=== PATIENT | female | born 1970 | race Caucasian/White ===

== ENCOUNTER → 2018-07-04 | Outpatient (CLI) | payer OTHER ==
--- NOTE | 2018-07-06 11:10 | Diagnostic Imaging Report ---
EXAMINATION: Digital mammogram bilateral screening with 3D tomosynthesis. INDICATION: Screening. This study was compared to the prior exam of 12/10/2014. At this time there are no current complaints. The current study was also evaluated with a Computer Aided Detection (CAD) system. FINDINGS: The fibroglandular tissue in both breasts is heterogeneously dense. This does limit the sensitivity of this exam. Overall, there does not appear to have been any significant change when compared to the prior study. No primary or secondary sign of malignancy is noted. IMPRESSION: 1. There is no radiographic evidence for malignancy. 2. The patient should have her annual bilateral screening mammogram on schedule in June of 2019. ACR BI-RADS Category 1: Negative. Result letter will be mailed to the patient. Note: At least 10% of breast cancer is not imaged by mammography. Dictated by: Dictated on workstation # [id number]
== END ==
LOC: RAD 15:23
PROVIDERS: ATTEND Obstetrics & Gynecology
DX: Z12.31 Encounter for screening mammogram for malignant neoplasm of breast (principal)
CPT/HCPCS: 77067

== ENCOUNTER → 2018-07-29 | Outpatient (CLI) | payer OTHER ==
--- NOTE | 2018-07-29 14:23 | Diagnostic Imaging Report ---
PROCEDURE: US Non-ob pelvis comp/trans. TECHNIQUE: Multiple realtime grayscale images were obtained of the pelvis in various projections endovaginally. Transabdominal imaging was also performed. INDICATION: Oligomenorrhea FINDINGS: The uterus measures 10.2 x 6.1 x 5.7 cm. Endometrium measures 11 mm in thickness. The myometrium and endometrium were unremarkable. There are several nabothian cysts in the cervix, the largest of which measures 3.4 cm. The ovaries were obscured by bowel gas. IMPRESSION: Multiple large nabothian cysts in the cervix. Myometrium and endometrium are unremarkable. Dictated by: Dictated on workstation # [id number]
== END ==
LOC: RAD 13:01
PROVIDERS: ATTEND Obstetrics & Gynecology
DX: N91.5 Oligomenorrhea, unspecified (principal); N88.8 Other specified noninflammatory disorders of cervix uteri; Z80.49 Family history of malignant neoplasm of other genital organs
CPT/HCPCS: 76830; 76856

== ENCOUNTER 2019-05-03 16:07 | Observation (INO) | payer OTHER ==
[~2019-05-03] VITALS: Ht 157.5 cm; Wt 108.3 kg
--- NOTE | 2019-05-03 16:57 | ED General ---
General Chief Complaint: Fever-Adult/Adol Stated Complaint: ABD PAIN,FEVER History of Present Illness Date Seen by Provider: May 03, 2019 Time Seen by Provider: 16:45 (LOS GARCIA DO) Initial Comments ER with abdominal pain and fever ongoing for 2-3 days. Abdominal pain is right lower quadrant. She states that she's been having some irregular menses and is scheduled to have a hysterectomy with Dr. Gonzalez in the next few weeks. Her mother of ovarian cancer. Timing/Duration: 2-3 Days Severity: Moderate (MARY WINSLOW APRN) Allergies and Home Medications Allergies Coded Allergies: No Known Drug Allergies (Unverified , 05/03/19) Patient Home Medication List Home Medication List Reviewed: Yes (MARY WINSLOW APRN) Review of Systems Review of Systems Constitutional: see HPI, fever EENTM: see HPI Respiratory: no symptoms reported Cardiovascular: no symptoms reported Gastrointestinal: abdominal pain Genitourinary: no symptoms reported Musculoskeletal: no symptoms reported Skin: no symptoms reported Psychiatric/Neurological: No Symptoms Reported Hematologic/Lymphatic: No Symptoms Reported (MARY WINSLOW APRN) Past Indyfnz-Exfbse-Wbwakd Hx Patient Social History Recent Foreign Travel: No Contact w/Someone Who Travel: No (LOS GARCIA DO) Physical Exam Vital Signs Vital Signs - First Documented 05/03/19 16:28 Temp 39.9 Pulse 110 Resp 22 B/P (MAP) 148/74 (98) Pulse Ox 98 O2 Delivery Room Air (MARY WINSLOW APRN) Vital Signs Capillary Refill : (LOS GARCIA DO) Height, Weight, BMI Height: '" Weight: lbs. oz. kg; BMI Method: (LOS GARCIA DO) General Appearance: No Apparent Distress, WD/WN (she has a history of a stroke but last) Eyes: Bilateral Eye Normal Inspection, Bilateral Eye PERRL, Bilateral Eye EOMI HEENT: PERRL/EOMI, TMs Normal Respiratory: No Accessory Muscle Use, No Respiratory Distress Cardiovascular: Regular Rate, Rhythm, Normal Peripheral Pulses Gastrointestinal: Soft; No Distended, No Guarding; Tenderness (right lower quadrant) Genital/Rectal: Other (over exam with Hermelinda, PCT at the bedside. There is blood from the cervical os, there is no cervical motion tenderness) Extremity: Normal Capillary Refill, Normal Inspection Neurologic/Psychiatric: Alert, Oriented x3 Skin: Normal Color (MARY WINSLOW APRN) Progress/Results/Core Measures Suspected Sepsis SIRS Temperature: Pulse: Respiratory Rate: Blood Pressure / Mean: (LOS GARCIA DO) Results/Orders Lab Results Laboratory Tests Test 05/03/19 16:50 05/03/19 18:53 05/03/19 19:00 Range/Units White Blood Count 17.7 H 4.3-11.0 10^3/uL Red Blood Count 4.92 4.35-5.85 10^6/uL Hemoglobin 13.7 11.5-16.0 G/DL Hematocrit 41 35-52 % Mean Corpuscular Volume 83 80-99 FL Mean Corpuscular Hemoglobin 28 25-34 PG Mean Corpuscular Hemoglobin Concent 34 32-36 G/DL Red Cell Distribution Width 13.0 10.0-14.5 % Platelet Count 320 130-400 10^3/uL Mean Platelet Volume 10.0 7.4-10.4 FL Neutrophils (%) (Auto) 80 H 42-75 % Lymphocytes (%) (Auto) 11 L 12-44 % Monocytes (%) (Auto) 9 0-12 % Eosinophils (%) (Auto) 1 0-10 % Basophils (%) (Auto) 0 0-10 % Neutrophils # (Auto) 14.1 H 1.8-7.8 X 10^3 Lymphocytes # (Auto) 1.9 1.0-4.0 X 10^3 Monocytes # (Auto) 1.7 H 0.0-1.0 X 10^3 Eosinophils # (Auto) 0.1 0.0-0.3 10^3/uL Basophils # (Auto) 0.0 0.0-0.1 10^3/uL Neutrophils % (Manual) 74 % Lymphocytes % (Manual) 15 % Monocytes % (Manual) 9 % Eosinophils % (Manual) 2 % Toxic Granulation 2+ Blood Morphology Comment NORMAL Sodium Level 135 135-145 MMOL/L Potassium Level 4.1 3.6-5.0 MMOL/L Chloride Level 101 98-107 MMOL/L Carbon Dioxide Level 23 21-32 MMOL/L Anion Gap 11 5-14 MMOL/L Blood Urea Nitrogen 10 7-18 MG/DL Creatinine 0.67 0.60-1.30 MG/DL Estimat Glomerular Filtration Rate > 60 BUN/Creatinine Ratio 15 Glucose Level 98 70-105 MG/DL Calcium Level 9.2 8.5-10.1 MG/DL Corrected Calcium 9.2 8.5-10.1 MG/DL Total Bilirubin 0.3 0.1-1.0 MG/DL Aspartate Amino Transf (AST/SGOT) 10 5-34 U/L Alanine Aminotransferase (ALT/SGPT) 16 0-55 U/L Alkaline Phosphatase 81 40-136 U/L Total Protein 7.8 6.4-8.2 GM/DL Albumin 4.0 3.2-4.5 GM/DL Serum Test, Qualitative NEGATIVE NEGATIVE Urine Color YELLOW Urine Clarity CLEAR Urine pH 7.0 5-9 Urine Specific [place] <=1.005 1.016-1.022 Urine Protein NEGATIVE NEGATIVE Urine Glucose (UA) NEGATIVE NEGATIVE Urine Ketones NEGATIVE NEGATIVE Urine Nitrite NEGATIVE NEGATIVE Urine Bilirubin NEGATIVE NEGATIVE Urine Urobilinogen 0.2 < = 1.0 MG/DL Urine Leukocyte Esterase NEGATIVE NEGATIVE Urine RBC (Auto) NEGATIVE NEGATIVE Urine RBC NONE /HPF Urine WBC NONE /HPF Urine Squamous Epithelial Cells RARE /HPF Urine Crystals NONE /LPF Urine Bacteria NEGATIVE /HPF Urine Casts NONE /LPF Urine Mucus NEGATIVE /LPF Urine Culture Indicated NO (MARY WINSLOW APRN) Micro Results Microbiology 05/03/19 Influenza Types A,B Antigen (KOFFI) - Final, Complete (MARY WINSLOW APRN) My Orders Orders - MARY WINSLOW APRN Cbc With Automated Diff (05/03/19 17:01) Comprehensive Metabolic Panel (05/03/19 17:01) Hcg,Qualitative Serum (05/03/19 17:01) Ed Iv/Invasive Line Start (05/03/19 17:01) Ct Abd/Pelv W (Appendicitis) (05/03/19 17:01) Influenza A And B Antigens (05/03/19 17:01) Ua Culture If Indicated (05/03/19 17:01) Acetaminophen Tablet (Tylenol Tablet) (05/03/19 17:15) Ibuprofen Tablet (Motrin Tablet) (05/03/19 17:15) Iohexol Injection (Omnipaque 350 Mg/Ml 1 (05/03/19 17:15) Received Contrast (Hold Metformin- Contr (05/03/19 17:15) Ns (Ivpb) (Sodium Chloride 0.9% Ivpb Bag (2/5/20 17:15) Manual Differential (05/03/19 16:50) Wet Prep (05/03/19 19:03) Neisseria Gonorrhea Swab (05/03/19 19:03) Genital Culture (05/03/19 19:03) Chlamydia Trachomatis Swab (05/03/19 19:03) Ns Iv 1000 Ml (Sodium Chloride 0.9%) (05/03/19 19:30) Fentanyl Injection (Sublimaze Injection (05/03/19 19:30) Piperacillin Sodium/Tazobactam (Zosyn Vi (05/03/19 20:15) (MARY WINSLOW APRN) Medications Given in ED Current Medications Medications Dose Ordered Sig/Garrett Route Start Time Stop Time Status Last Admin Dose Admin Acetaminophen 1,000 mg ONCE ONCE PO 05/03/19 17:15 05/03/19 17:16 DC 05/03/19 17:36 1,000 MG Fentanyl Citrate 50 mcg ONCE ONCE IVP 05/03/19 19:30 05/03/19 19:31 DC 05/03/19 19:55 50 MCG Ibuprofen 800 mg ONCE ONCE PO 05/03/19 17:15 05/03/19 17:16 DC 05/03/19 17:35 800 MG Iohexol 100 ml ONCE ONCE IV 05/03/19 17:15 05/03/19 17:16 DC 05/03/19 17:51 100 ML Sodium Chloride 100 ml ONCE ONCE IV 05/03/19 17:15 05/03/19 17:16 DC 05/03/19 17:51 80 ML (MARY WINSLOW APRN) Vital Signs/I&O 05/03/19 05/03/19 05/03/19 16:28 17:35 17:36 Temp 39.9 39.9 39.9 Pulse 110 Resp 22 B/P (MAP) 148/74 (98) Pulse Ox 98 O2 Delivery Room Air (MARY WINSLOW APRN) Vital Signs/I&O Capillary Refill : (LOS GARCIA DO) Departure Communication (Admissions) Time/Spoke to Admitting Phy: 20:13 1902-Spoke to Dr. Finney who is on-call for surgery, looked at the CT himself doesn't visualize an appendix, feels this is ovarian in nature. However, if [facility] wanted to take this to the operating room he would be happy to accompany them tonight. I then spoke with Dr. Ch bacon slicer for Dr. Gonzalez, based on what I described the CT scan as, he doesn't feel this is ovarian, would recommend wet prep to evaluate for white blood cells. If there are white blood cells then TOA/PID is more likely and she needs antibiotics. If no white blood cells and no cervical motion tenderness and it would be unlikely to be gynecologic in nature. 2012-spoke with Dr. Finney again, there is no cervical motion tenderness and rare white cells on wet prep. We'll admit for right adnexal mass, tentatively plan for diagnostic laparotomy tomorrow. (MARY WINSLOW APRN) Impression Primary Impression: Right lower quadrant pain Additional Impression: right adnexal mass Disposition: ADMITTED INPATIENT Condition: Stable Admissions Decision to Admit Reason: Admit from ER (General) Decision to Admit/Date: May 03, 2019 Time/Decision to Admit Time: 20:13 (MARY WINSLOW APRN) Departure-Patient Inst. Referrals: CLIVE GONZALEZ DO (PCP/Family) Primary Care Physician LOS GARCIA DO May 03, 2019 16:57 MARY WINSLOW APRN May 03, 2019 18:52
--- NOTE | 2019-05-03 17:08 | NUR ---
Leander jones in [facility] - 05/03/19 at 1710 by [id number] Turned pt's O2 off at this time and pt's sat dropped to 88% again. O2 reapplied.
[2019-05-03] MEDS ORDERED: HOLD METFORMIN - RECEIVED CONTRAST 20 ML VIAL IV SCH (17:15)
[2019-05-03] MEDS ORDERED: ACETAMINOPHEN 500 MG TAB (TYLENOL) PO ONE (17:15)
[2019-05-03] MEDS ORDERED: NS 100 ML (IVPB) BAG IV ONE (17:15)
[2019-05-03] MEDS ORDERED: IBUPROFEN 800 MG (MOTRIN) TAB PO ONE (17:15)
[2019-05-03] MEDS ORDERED: IOHEXOL 350 MG/ML 100 ML (OMNIPAQUE 350) VIAL IV ONE (17:15)
[2019-05-03 17:23] LABS: BASOPHILS % (AUTO) 0 % (0-10); EOSINOPHILS # (AUTO) 0.1 10^3/uL (0.0-0.3); EOSINOPHILS % (AUTO) 1 % (0-10); HEMATOCRIT 41 % (35-52); HEMOGLOBIN 13.7 G/DL (11.5-16.0); LYMPHOCYTES # (AUTO) 1.9 X 10^3 (1.0-4.0); LYMPHOCYTES % (AUTO) 11 % (12-44); MEAN CORPUSCULAR HEMOGLOBIN 28 PG (25-34); MEAN CORPUSCULAR HGB CONC 34 G/DL (32-36); MEAN CORPUSCULAR VOLUME 83 FL (80-99); MONOCYTES # (AUTO) 1.7 X 10^3 (0.0-1.0); MONOCYTES % (AUTO) 9 % (0-12); NEUTROPHILS # (AUTO) 14.1 X 10^3 (1.8-7.8); NEUTROPHILS % (AUTO) 80 % (42-75); PLATELET COUNT 320 10^3/uL (130-400); WHITE BLOOD COUNT 17.7 10^3/uL (4.3-11.0)
[2019-05-03 17:37] LABS: ALANINE AMINOTRANSFERASE 16 U/L (0-55); ALKALINE PHOSPHATASE 81 U/L (40-136); BILIRUBIN,TOTAL 0.3 MG/DL (0.1-1.0); BUN/CREATININE RATIO 15; CALCIUM 9.2 MG/DL (8.5-10.1); CARBON DIOXIDE 23 MMOL/L (21-32); CHLORIDE 101 MMOL/L (98-107); CREATININE SERUM 0.67 MG/DL (0.60-1.30); GFR ESTIMATED > 60; GLUCOSE 98 MG/DL (70-105); POTASSIUM 4.1 MMOL/L (3.6-5.0); SODIUM 135 MMOL/L (135-145); TOTAL PROTEIN 7.8 GM/DL (6.4-8.2)
[2019-05-03 17:45] LABS: LYMPHOCYTES % (MANUAL) 15 %; MONOCYTES % (MANUAL) 9 %; NEUTROPHILS % (MANUAL) 74 %
[2019-05-03 17:46] LABS: EOSINOPHILS % (MANUAL) 2 %; RBC MORPH NORMAL; TOXIC GRANULATION/VACUOLAZATIO 2+
--- NOTE | 2019-05-03 18:15 | Diagnostic Imaging Report ---
PROCEDURE: CT abdomen and pelvis with contrast, rule out appendicitis. TECHNIQUE: Multiple contiguous axial images were obtained through the abdomen and pelvis after the administration of intravenous contrast. All CT scans use one or more of the following dose optimizing techniques: automated exposure control, MA and/or KvP adjustment based on a patient size and exam type, or iterative reconstruction. INDICATION: Abdominal pain. COMPARISON: 07/29/2018 pelvic ultrasound. FINDINGS: The lung bases are clear. Liver, gallbladder, pancreas, spleen, adrenals, kidneys, collecting systems and bladder are negative. The appendix is not well seen and may be surgically absent. There is a complex cystic mass in the right adnexa, adjacent the cecum, which is most likely ovarian in origin. This measures approximately 6.0 x 3.6 x 4.7 cm. There is also small amount of stranding about this complex cystic mass. There is also complex cystic mass in the cervix measuring 5.4 x 3.7 x 3.2 cm. No free fluid dependently in the pelvis. No free intraperitoneal air. No lymphadenopathy. No evidence of bowel obstruction or inflammation. Mild colonic diverticulosis. IMPRESSION: 1. Indeterminate complex cystic mass in the right adnexa is most likely ovarian in origin. This measures up to 6.0 cm and demonstrates adjacent inflammatory change/stranding. No free fluid in the pelvis. The appendix is not identified and an abscess due to complicated appendicitis could also be considered. 2. Complex cystic mass in the cervix measuring up to 5.4 cm. Multiple large nabothian cysts were seen on the prior pelvic ultrasound. It is unclear if these have changed since that time. An endometrial malignancy cannot be excluded. Dictated by: Dictated on workstation # [id number]
[2019-05-03 19:05] LABS: BILIRUBIN,URINE NEGATIVE (NEGATIVE); CLARITY,URINE CLEAR; COLOR,URINE YELLOW; GLUCOSE, URINE (UA) NEGATIVE (NEGATIVE); KETONES,URINE NEGATIVE (NEGATIVE); LEUKOCYTE ESTERASE ,URINE NEGATIVE (NEGATIVE); NITRITE,URINE NEGATIVE (NEGATIVE); PROTEIN,URINE NEGATIVE (NEGATIVE)
[2019-05-03 19:13] LABS: BACTERIA,URINE NEGATIVE /HPF; SQUAMOUS EPITHELIAL CELL,UR RARE /HPF
[2019-05-03] MEDS ORDERED: NS IV 1000 ML 1,000 ML IV SCH (19:30)
[2019-05-03] MEDS ORDERED: fentaNYL INJECTION 100 MCG/2 ML AMP IVP ONE (19:30)
[2019-05-03] MEDS ORDERED: PIPERACILLIN SODIUM/TAZOBACTAM 4.5 GM in NS (IVPB) 100 ML IV ONE (20:15)
--- NOTE | 2019-05-03 21:13 | NUR ---
attempted to call for report-no answer
--- NOTE | 2019-05-03 21:13 | NUR ---
moose assisted Marc with mainspring winder and oiler exam
--- NOTE | 2019-05-03 22:20 | NUR ---
VASQUEZ DURBIN admitted to room 426-1, with an admitting diagnosis of RIGHT ADNEXAL MASS , on 05/03/19 from [place] via [facility], accompanied by STAFF AND SISTER.VASQUEZ DURBIN introduced to surroundings, call light, bed controls, phone, TV, temperature control, lights, meal times, smoking policy, visitor policy, side rail policy, bathrooms and showers. Patient Rights given to patient in the handbook. VASQUEZ DURBIN verbalizes understanding that [facility] is not responsible for the loss or damage to any personal effects or valuables that are kept in the patients posession during their hospitalization. Patient and/or family were informed about the Rapid Response Team and its purpose.
[2019-05-03 22:37] VITALS: BP 125/74
[2019-05-03] MEDS ORDERED: ACETAMINOPHEN 325 MG TABLET PO PRN (22:45)
[2019-05-03] MEDS ORDERED: fentaNYL INJECTION 100 MCG/2 ML AMP IV PRN (22:45)
[2019-05-03] MEDS ORDERED: CATHETER FLUSH 10 ML SYR IV PRN (22:45)
[2019-05-03] MEDS: NS IV 1000 ML 1,000 ML IV SCH (23:13)
[2019-05-04] VITALS (13 sets, daily range): BP systolic 17–142; BP diastolic 54–74
[2019-05-04] MEDS ORDERED: PIPERACILLIN/TAZO 4.5 GM VIAL (ZOSYN) IV ONE (02:12)
[2019-05-04] MEDS ORDERED: NS (IVPB) 100 ML ONE (02:13)
[2019-05-04] MEDS: PIPERACILLIN/TAZO 4.5 GM/NS 100 ML IV SCH ×6 (02:31→17:16)
[2019-05-04] MEDS: IBUPROFEN 600 MG (MOTRIN) TAB PO PRN ×2 (04:20→20:01)
[2019-05-04] MEDS: NS IV 1000 ML 1,000 ML IV SCH ×3 (05:51→18:45)
[2019-05-04 06:18] LABS: BASOPHILS % (AUTO) 0 % (0-10); EOSINOPHILS % (AUTO) 0 % (0-10); HEMATOCRIT 37 % (35-52); HEMOGLOBIN 11.9 G/DL (11.5-16.0); LYMPHOCYTES # (AUTO) 1.3 X 10^3 (1.0-4.0); LYMPHOCYTES % (AUTO) 7 % (12-44); MEAN CORPUSCULAR HEMOGLOBIN 27 PG (25-34); MEAN CORPUSCULAR HGB CONC 32 G/DL (32-36); MEAN CORPUSCULAR VOLUME 83 FL (80-99); MONOCYTES # (AUTO) 1.6 X 10^3 (0.0-1.0); MONOCYTES % (AUTO) 9 % (0-12); NEUTROPHILS # (AUTO) 15.1 X 10^3 (1.8-7.8); NEUTROPHILS % (AUTO) 84 % (42-75); PLATELET COUNT 278 10^3/uL (130-400); RED CELL DISTRIBUTION WIDTH 12.9 % (10.0-14.5)
[2019-05-04 06:33] LABS: ALANINE AMINOTRANSFERASE 15 U/L (0-55); ALBUMIN 3.4 GM/DL (3.2-4.5); ALKALINE PHOSPHATASE 71 U/L (40-136); BILIRUBIN,TOTAL 0.4 MG/DL (0.1-1.0); BUN/CREATININE RATIO 11; CALCIUM 8.4 MG/DL (8.5-10.1); CARBON DIOXIDE 23 MMOL/L (21-32); CHLORIDE 108 MMOL/L (98-107); CREATININE SERUM 0.61 MG/DL (0.60-1.30); GFR ESTIMATED > 60; GLUCOSE 116 MG/DL (70-105); POTASSIUM 3.6 MMOL/L (3.6-5.0); SODIUM 138 MMOL/L (135-145); TOTAL PROTEIN 6.7 GM/DL (6.4-8.2)
[2019-05-04] MEDS ORDERED: LACTATED RINGERS 1,000 ML IV PRN (08:40)
[2019-05-04] MEDS ORDERED: BUP/EPI 0.5% 1:200,000 (SENSORCAINE) 30 ML VIAL ONE (08:42)
[2019-05-04] MEDS ORDERED: LIDOCAINE PF 2% 5 ML (XYLOCAINE) VIAL ONE (09:44)
[2019-05-04] MEDS ORDERED: ROCURONIUM 10 MG/ML 5 ML SYRINGE IV ONE (09:44)
[2019-05-04] MEDS ORDERED: proPOfol 200 MG/20 ML (DIPRIVAN) VIAL IV ONE (09:44)
[2019-05-04] MEDS ORDERED: MIDAZOLAM 2 MG/2 ML (VERSED) VIAL ONE (09:45)
[2019-05-04] MEDS ORDERED: fentaNYL INJECTION 100 MCG/2 ML AMP ONE ×2 (09:45→12:20)
[2019-05-04] MEDS ORDERED: SEVOFLURANE (ULTANE) 15 ML INHAL SOLN ONE ×7 (09:46→12:39)
[2019-05-04] MEDS ORDERED: DEXAMETHASONE 10 MG/ML (DECADRON) 1 ML VIAL ONE (09:46)
[2019-05-04] MEDS ORDERED: ONDANSETRON 4 MG/2 ML (SDV) Z0FRAN ONE ×2 (09:46→12:39)
[2019-05-04] MEDS ORDERED: MULT-298 PO (09:56)
[2019-05-04] MEDS ORDERED: IBUP-2473 PO (09:56)
--- NOTE | 2019-05-04 09:57 | NUR ---
Pt is listed as [employer]yb[employer]ian but prefers "Taoism" Mandaen. Junior Software Engineer offered prayer and blessing.
--- NOTE | 2019-05-04 10:24 | NUR ---
SPOKE WITH THE PT TO THE COMPLETE THE MED REC. PT INDICATED SHE DOES NOT TAKE ANY PRESCRIPTION MEDICATION. I DID UPDATE HER PREFERRED PHARMACY. OTC MEDS: IBUPROFEN MTV W/ IRON
--- NOTE | 2019-05-04 10:33 | History & Physical-Surgical ---
[facility] 05/04/19 1032: History of Present Illness History of Present Illness Reason for visit/HPI Allyssa is a 49 year old female that presented to the ED with pain and fever of 2-3 days duration. Pain is localized in the RLQ, pain radiates to back and into groin area. Patient feels pain with moderate palpation and has voluntary guarding. Remainder of abdomen is soft and tender with no pain. Neg Rovsing sign. CT of abdomen showed cystic masses adjacent to cecum and cervix, appendix not visualized. Patient was examined by Dr. Holman for evaluation of pain being of gynecologic origin. She is admitted for R adnexal mass. Surgical history includes 3 prior C sections, with the last one being over 25 years ago. She was scheduled to have a hysterectomy on May 16. At this time patient denies nausea, vomiting, or pain in other areas of her body. Patient had a bowel movement yesterday and is urinating without difficulty. Denies SOB, chest pain, or palpitations. Patient denies smoking, drinking or recreational drugs. Negative test Date of Admission May 03, 2019 at 20:07 Date Seen by a Provider: May 04, 2019 Time Seen by a Provider: 08:30 I consulted on this patient on 05/04/19 10:27 Attending Physician Rubio Rodriguez DO Admitting Physician Susy Penny DO Consult Allergies and Home Medications Allergies Coded Allergies: No Known Drug Allergies (Unverified , 05/03/19) Home Medications Ibuprofen 200 Mg Tablet, 600-800 MG PO Q8H PRN for PAIN-MILD (1-4), (Reported) Multivitamin/Iron/Folic Acid 1 Each Tablet, 1 EACH PO DAILY, (Reported) Past Qapqinf-Wrexzd-Bjtyap Hx Patient Social History Alcohol Use: Denies Use Recreational Drug Use: No Smoking Status: Never a Smoker 2nd Hand Smoke Exposure: No Recent Foreign Travel: No Contact w/Someone Who Travel: No Recent Infectious Disease Expo: No Immunizations Up To Date Date of Influenza Vaccine: Feb 01, 2019 Surgeries History of Surgeries: Yes Surgeries: Section Respiratory History of Respiratory Disorde: No Cardiovascular History of Cardiac Disorders: No Neurological History of Neurological Disord: No Reproductive System Female Reproductive Disorders: Menstrual Problems CONFERENCE ASSISTANT History: Tubal Ligation Genitourinary History of Genitourinary Disor: No Gastrointestinal History of Gastrointestinal Di: No Musculoskeletal History of Musculoskeletal Dis: No Endocrine History of Endocrine Disorders: No HEENT History of HEENT Disorders: No Cancer History of Cancer: No Psychosocial History of Psychiatric Problem: No Integumentary History of Skin or Integumenta: No Blood Transfusions History of Blood Disorders: No Family Medical History Significant Family History: Cancer (mom - ovarian cancer ), Stroke (father) Review of Systems Constitutional: chills; No diaphoresis; fever; No weakness EENTM: No hearing loss, No double vision, No vision loss Respiratory: No cough, No dyspnea on exertion, No orthopnea, No short of breath Cardiovascular: No chest pain; edema (mild b/l ); No palpitations Gastrointestinal: RLQ, abdominal pain (RLQ); No constipation, No diarrhea, No dysphagia, No nausea, No vomiting Genitourinary: No dysuria, No pain Musculoskeletal: No muscle pain, No muscle cramps, No muscle weakness Skin: no symptoms reported Psychiatric/Neurological: No Symptoms Reported Physical Exam Vital Signs Vital Signs - First Documented 05/03/19 16:28 Temp 39.9 Pulse 110 Resp 22 B/P (MAP) 148/74 (98) Pulse Ox 98 O2 Delivery Room Air Capillary Refill : Less Than 3 Seconds Height, Weight, BMI Height: '" Weight: lbs. oz. kg; 43.65 BMI Method: General Appearance: No Apparent Distress, WD/WN HEENT: No Scleral Icterus (L), No Scleral Icterus (R) Neck: Non Tender, Supple Respiratory: Chest Non Tender, Lungs Clear, Normal Breath Sounds, No Accessory Muscle Use, No Respiratory Distress Cardiovascular: Regular Rate, Rhythm, No Murmur, Normal Peripheral Pulses (2/4 b/l radial) Gastrointestinal: Normal Bowel Sounds, Guarding (voluntary RLQ); No Rebound; T enderness (RLQ) Rectal: Deferred Back: Normal Inspection, No CVA Tenderness Extremity: No Calf Tenderness, Swelling (b/l mild ) Neurologic/Psychiatric: Alert, Oriented x3, Normal Mood/Affect Skin: Normal Color, Warm/Dry Lymphatic: No Adenopathy (neck, auricular, supraclavicular, inguinal. popliteal - negative for all) Data Review Labs Laboratory Tests 05/03/19 16:50: White Blood Count 17.7H, Red Blood Count 4.92, Hemoglobin 13.7, Hematocrit 41, Mean Corpuscular Volume 83, Mean Corpuscular Hemoglobin 28, Mean Corpuscular Hemoglobin Concent 34, Red Cell Distribution Width 13.0, Platelet Count 320, Mean Platelet Volume 10.0, Neutrophils (%) (Auto) 80H, Lymphocytes (%) (Auto) 11L, Monocytes (%) (Auto) 9, Eosinophils (%) (Auto) 1, Basophils (%) (Auto) 0, Neutrophils # (Auto) 14.1H, Lymphocytes # (Auto) 1.9, Monocytes # (Auto) 1.7H, Eosinophils # (Auto) 0.1, Basophils # (Auto) 0.0, Neutrophils % (Manual) 74, Lymphocytes % (Manual) 15, Monocytes % (Manual) 9, Eosinophils % (Manual) 2, Toxic Granulation 2+, Blood Morphology Comment NORMAL, Sodium Level 135, Potassium Level 4.1, Chloride Level 101, Carbon Dioxide Level 23, Anion Gap 11, Blood Urea Nitrogen 10, Creatinine 0.67, Estimat Glomerular Filtration Rate > 60, BUN/Creatinine Ratio 15, Glucose Level 98, Calcium Level 9.2, Corrected Calcium 9.2, Total Bilirubin 0.3, Aspartate Amino Transf (AST/SGOT) 10, Alanine Aminotransferase (ALT/SGPT) 16, Alkaline Phosphatase 81, Total Protein 7.8, Albumin 4.0, Serum Test, Qualitative NEGATIVE 05/03/19 18:53: 05/03/19 19:00: Urine Color YELLOW, Urine Clarity CLEAR, Urine pH 7.0, Urine Specific [place] <=1.005, Urine Protein NEGATIVE, Urine Glucose (UA) NEGATIVE, Urine Ketones NEGATIVE, Urine Nitrite NEGATIVE, Urine Bilirubin NEGATIVE, Urine Urobilinogen 0.2, Urine Leukocyte Esterase NEGATIVE, Urine RBC (Auto) NEGATIVE, Urine RBC NONE, Urine WBC NONE, Urine Squamous Epithelial Cells RARE, Urine Crystals NONE, Urine Bacteria NEGATIVE, Urine Casts NONE, Urine Mucus NEGATIVE, Urine Culture Indicated NO 05/04/19 06:02: White Blood Count 18.0H, Red Blood Count 4.49, Hemoglobin 11.9, Hematocrit 37, Mean Corpuscular Volume 83, Mean Corpuscular Hemoglobin 27, Mean Corpuscular Hemoglobin Concent 32, Red Cell Distribution Width 12.9, Platelet Count 278, Mean Platelet Volume 10.0, Neutrophils (%) (Auto) 84H, Lymphocytes (%) (Auto) 7L , Monocytes (%) (Auto) 9, Eosinophils (%) (Auto) 0, Basophils (%) (Auto) 0, Neutrophils # (Auto) 15.1H, Lymphocytes # (Auto) 1.3, Monocytes # (Auto) 1.6H, Eosinophils # (Auto) 0.0, Basophils # (Auto) 0.0, Sodium Level 138, Potassium Level 3.6, Chloride Level 108H, Carbon Dioxide Level 23, Anion Gap 7, Blood Urea Nitrogen 7, Creatinine 0.61, Estimat Glomerular Filtration Rate > 60, BUN/Creatinine Ratio 11, Glucose Level 116H, Calcium Level 8.4L, Corrected Calcium 8.9, Total Bilirubin 0.4, Aspartate Amino Transf (AST/SGOT) 11, Alanine Aminotransferase (ALT/SGPT) 15, Alkaline Phosphatase 71, Total Protein 6.7, Albumin 3.4 05/04/19 09:10: Urine Test NEGATIVE Microbiology 05/03/19 Influenza Types A,B Antigen (KOFFI) - Final, Complete Assessment/Plan Assessment/Plan Assessment/Plan RLQ pain unsure origin - patient will undergo ex lap to visualize appendix and assess. Patient understands and is in agreement. RLQ Cystic masses - will evaluate in OR Hx of ovarian cancer Leukocytosis NPO Clinical Quality Measures DVT/VTE Risk/Contraindication: Risk Factor Score Per Nursin RFS Level Per Nursing on Admit: 3=High RUBIO RODRIGUEZ DO 05/04/19 1058: History of Present Illness History of Present Illness Reason for visit/HPI ER with abdominal pain and fever ongoing for 2-3 days. Abdominal pain is right lower quadrant. She states that she's been having some irregular menses and is scheduled to have a hysterectomy with Dr. Penny in the next few weeks. Her mother of ovarian cancer. She rates the pain as 8 out of 10 and is only helped by laying still. Pain is radiating down into pelvis. Time Seen by a Provider: 10:00 Allergies and Home Medications Allergies Coded Allergies: No Known Drug Allergies (Unverified , 05/03/19) Home Medications Ibuprofen 200 Mg Tablet, 600-800 MG PO Q8H PRN for PAIN-MILD (1-4), (Reported) Multivitamin/Iron/Folic Acid 1 Each Tablet, 1 EACH PO DAILY, (Reported) Patient Home Medication List Home Medication List Reviewed: Yes Past Ydpdhpa-Bnezrr-Ibxvdv Hx Patient Social History Alcohol Use: Denies Use Surgeries History of Surgeries: Yes Surgeries: Section HEENT History of HEENT Disorders: Yes Loss of Vision: Denies Hearing Impairment: Denies Cancer History of Cancer: No Psychosocial History of Psychiatric Problem: No Integumentary History of Skin or Integumenta: No Blood Transfusions History of Blood Disorders: No Adverse Reaction to a Blood Tr: No Review of Systems Skin: No change in color, No change in hair/nails Psychiatric/Neurological: Denies Anxiety, Denies Depressed, Denies Seizure, Denies Tremors Physical Exam Eyes: Bilateral Eye PERRL, Bilateral Eye EOMI HEENT: Moist Mucous Membranes Gastrointestinal: Soft, Tenderness (RLQ-most, but some in suprapubic and LLQ), Other (midline scar below umbilicus secondary to previous ) Extremity: Normal Capillary Refill, Normal Range of Motion Lymphatic: No Adenopathy (neck, auricular, supraclavicular, inguinal. popliteal - negative for all) Assessment/Plan Assessment/Plan Admission Diagonsis RLQ pain Elevated WBC Admission Status: Inpatient Order (span 2 midnights) Reason for Inpatient Admission: Pt is having surgery performed, if there is nothing major found she could go home today. However, she may need another day of IV ABX which would require 2 nights in the hospital. Assessment/Plan RLQ pain Elevated WBC We are unsure whether this is due to appendix or ovarian in nature. I looked at the CT myself and also could not find the appendix on the films. There is minimal inflammation down in pelvis; but the ovaries, fallopian tubes and uterus all have large cysts. Pt was admitted, IV fluids, NPO, pain control, anti-emetics and plan to do Diagnostic Laparoscopy possible appendectomy. Consent obtained and discussed the procedure with pt; risks and complications not limited to pain, bleeding, infection, scar and damage to bowel with need for further procedure. All questions answered to her satisfaction. She did ask about taking out Uterus now instead of 2 weeks, but I told her if there was any infection this would be a very bad idea; because it wouldn't heal. Supervisory-Addendum Brief Verification & Attestation Participated in pt care: history, MDM, physical Personally performed: exam, history, MDM Care discussed with: Medical Student Procedures: n/a Verification and Attestation of Medical Student E/M Service A medical student performed and documented this service in my presence. I reviewed and verified all information documented by the medical student and made modifications to such information, when appropriate. I personally performed the physical exam and medical decision making. Rubio Rodriguez, May 04, 2019,11:15 [facility] May 04, 2019 10:32 RUBIO RODRIGUEZ DO May 04, 2019 10:58
[2019-05-04] MEDS ORDERED: FAMOTIDINE 20MG/2ML IV (PEPCID) ONE (10:40)
[2019-05-04] MEDS ORDERED: SCOPOLAMINE 1.5 MG (TRANSDERM-SCOP) PATCH ONE (10:40)
[2019-05-04] MEDS ORDERED: ONDANSETRON 4 MG/2 ML (SDV) Z0FRAN IVP PRN (12:45)
[2019-05-04] MEDS ORDERED: morphine INJ 10 MG/ML 1ML (SYR OR VIAL) IVP ONE (12:45)
[2019-05-04] MEDS ORDERED: MEPERIDINE (DEMEROL) INJ 50 MG/ML IVP ONE (12:45)
[2019-05-04] MEDS ORDERED: morphine INJ 10 MG/ML 1ML (SYR OR VIAL) ONE (12:55)
--- NOTE | 2019-05-04 13:49 | NUR ---
Pt arrived back to room from recovery, report received from Vonda BAIRES.
--- NOTE | 2019-05-04 13:58 | NUR ---
Pain meds pulled at pt's request, pt now stats "i'm ok", RN to reassess pain within the hour and administer ordered pain med if needed. Dr. Reg carrolled for diet order.
--- NOTE | 2019-05-04 14:04 | Progress Note-Post Operative ---
Post-Operative Progess Note Surgeon (s)/Classroom Aide (s) Surgeon RUBIO RODRIGUEZ DO Classroom Aide: Deisy Pre-Operative Diagnosis RLQ pain r/o appy vs. TOA Post-Operative Diagnosis TOA Adhesions Left ovarian cysts Procedure & Operative Findings Date of Procedure 05/04/19 Procedure Performed/Findings Diagnostic Laparoscopy with FELIX and appendectomy Drainage of Left ovarian cyst Assist Dr. Ch with R Salpingectomy Anesthesia Type GET Estimated Blood Loss Estimated blood loss (mL): scant Specimens/Packing Specimens Removed Appy R Fallopian tube Fluid culture RUBIO RODRIGUEZ DO May 04, 2019 14:03
--- NOTE | 2019-05-04 15:11 | NUR ---
49MCG FENTANYL WASTED WITH CATARINA BAIRES
[2019-05-04] MEDS: CATHETER FLUSH 10 ML SYR IV SCH (22:13)
--- NOTE | 2019-05-04 22:36 | OPERATIVE REPORT ---
DATE OF SERVICE: 05/04/2019 This patient is a 49-year-old female patient of Dr. Finney, who was admitted via the Emergency Department last night for pelvic pain and findings consistent with pelvic abscess of unknown etiology. There was concern this could be ovarian versus appendix. The patient was admitted in the night by Dr. Finney, observed through the night and brought to the operating room today for exploration. Dr. Finney requested that I consult intraoperatively as the patient had an obviously abnormal right fallopian tube. When I arrived the patient was in the operating room asleep, intubated and in mild Trendelenburg with laparoscopic ports in the abdomen. Dr. Finney had just finished freeing the appendix in preparation for an appendectomy. The patient apparently had significant adhesions of bowel and cecum and fallopian tube and ovary to each other and to the abdominal wall in the right adnexa. The uterus appeared normal as did the left fallopian tube and ovary. The right tube was markedly distended, tortuous, edematous and covered with what appeared to be a purulent exudate. Dr. Finney had freed the appendix from adhesions and freed what appeared to be the bulk of the adhesions of the fallopian tube to the adjacent structures. On confirming that this was indeed an abnormal fallopian tube with a fairly normal-appearing ovary, decision was made to proceed with removal of the abnormal tube as opposed to leaving it in situ and continue on antibiotics. The right ovary appeared normal, which would make it unlikely to be a TOA as this appeared to be a right salpingitis. The patient apparently also was planning to have a hysterectomy within the next couple of weeks at the hands of Dr. Penny. All things considered, it seemed prudent to remove this obviously abnormal and infected structure rather than leave it there to potentially cause additional problems and/or to complicate an eventual hysterectomy. Dr. Finney's request I scrubbed in to remove the right fallopian tube. I placed an Endo-JEANCARLOS across the mesosalpinx in favor of removing the fallopian tube and leaving the ovary in situ. A second firing of the stapler across the proximal portion of right fallopian tube left the tube attached by a structure of approximately 1.5 cm of mesosalpinx, which was severed using a third firing of the Endo-JEANCARLOS. The specimen was rather bulky, large, firm, indurated and edematous consistent with a fairly significant salpingitis. At this point, Dr. Finney resumed care of the patient in order to remove the appendix, which he placed in Endobag with the right fallopian tube that was now completely freed and he extracted those through the umbilical incision. A culture of the purulent contents of the right fallopian tube was obtained. Dr. Finney closed the incisions and completed the procedure and of course will dictate his portion of the procedure. I exited the operating room at this point with the patient stable and under the care of Dr. Finney. Job ID: [id number] DocumentID: [id number] Dictated Date: 05/04/2019 16:30:00 Head Of Research & Insights Date: 05/04/2019 22:36:16 Dictated By: MIO HAYS MD MTDD
[2019-05-05] MEDS: PIPERACILLIN/TAZO 4.5 GM/NS 100 ML IV SCH ×4 (02:41→09:42)
[2019-05-05] MEDS: NS IV 1000 ML 1,000 ML IV SCH ×2 (02:41→09:43)
[2019-05-05 03:31] VITALS: BP 119/58
--- NOTE | 2019-05-05 03:47 | OPERATIVE REPORT ---
DATE OF SERVICE: 05/04/2019 PREOPERATIVE DIAGNOSES: Right lower quadrant pain, elevated white count, rule out appendicitis, rule out tubo-ovarian abscess. POSTOPERATIVE DIAGNOSES: Right tubo-ovarian abscess with left ovarian cyst, adhesions. PROCEDURES: 1. Diagnostic laparoscopy changed to a laparoscopic appendectomy. 2. Drainage of left ovarian cyst. 3. Assist Dr. Ch for right salpingectomy. 4. Lysis of adhesion. SURGEON: Pastor Finney D.O. WHEAT BUYER: Dr. Olivas assisted on the laparoscopic appendectomy. I assisted Dr. Ch on his portion of the procedure; lap salpingectomy. ANESTHESIA: General endotracheal tube. SPECIMEN: Appendix and right fallopian tube as well as a fluid culture from the fallopian tube. BLOOD LOSS: Scant. FLUIDS: Per anesthesia. POSTOPERATIVE CONDITION: Stable. INDICATION FOR PROCEDURE: The patient is a 49-year-old female, who came in with abdominal pain, suprapubic, but more so in the right lower quadrant, had the elevated white count, had a CAT scan performed, saw some inflammation in the right lower quadrant, but could not really identify the appendix. She was admitted overnight, started on IV fluids, antibiotics and taken to the operating room on 05/04/2019. FINDINGS: The patient had a very large inflamed, edematous, erythematous tube looked like it was a tubo-ovarian abscess, able to find small appendix, she has also had a left ovarian cyst. PROCEDURE NOTE: After sterilely prepped and draped the patient in normal fashion, infiltrated the supraumbilical area with local, then made an incision with #11 blade, carried down through the skin into subcutaneous tissue, deepened down to subcutaneous tissue with Bovie electrocautery down to fascia. Fascia was incised with Bovie electrocautery and bluntly entered the abdomen, swept a finger around, placed 0 Vicryl [id number] suture and placed limited trocar port under direct visualization created pneumoperitoneum. Upon entry, noted adhesions in the midline. This is from her previous C-sections. Placed one port in the left lower quadrant and then one port suprapubically. Once this was done, then started coming across the adhesions in the midline, taking these down off the abdominal wall. Once we had freed these up, then noted a large inflammatory area in the right lower quadrant on the pelvic wall. Carefully started taking this down with some blunt dissection as well as with some irrigation, it was omentum stuck up here. Once we were able to push this down and then started taking it off of the pelvic wall, I then started pushing the omentum back could see a very inflamed, erythematous and edematous right fallopian tube. The uterus looked larger, but did not see anything grossly abnormal. The right ovary looked normal. Left ovary was large and had too large cysts on it. Continued taking the omentum off and then moved the fallopian tube out of the way. I then started pushing the small intestine. Terminal ileum off the pelvic wall as well as away from the omentum and then under the cecum able to find the appendix was small, did not look inflamed except for possibly the tip elected to remove this coming across the mesoappendix with the LigaSure, clamping, coagulating and transecting until the appendix was only attached to the cecum had come through the appendiceal artery with the LigaSure. Switched to 5 mm camera, brought Endo-JEANCARLOS across the base of appendix, clamped and fired, thereby transecting the appendix. At this point, I elected to call Dr. Ch in to have him looked at the tube, he felt that while it may have gotten better with antibiotics as long as in there would get better much faster if it was removed. Dr. Ch took over and did a right salpingectomy that I assisted with. Once we had identified the ureter and got the tube off, he then left the room. At this point, I then placed a bag in the abdomen, placed the appendix and the tube in the bag and then removed supraumbilical incision, little bit of what looked like purulent fluid came out and this was cultured and sent to pathology, placed the port back into the abdomen. There was two large cysts on the left ovary. Dr. Ch had directly to go ahead and drain these with the Bovie electrocautery, punctured them and let the fluid drained out. I did this and then suctioned the fluid out with a suction security officers and guards. Irrigated in the right lower quadrant. There was no bleeding and the staple line looked good. Took pictures of this and then placed the omentum back down the right pelvic gutter. At this point, the patient who had been in Trendelenburg was then placed supine. Looked around, did not see any obvious pathology. At this point, then removed all ports under direct visualization, allowed pneumoperitoneum to escape, closed supraumbilical incision, closing the fascia with 0 Vicryl suture previously placed. Copiously irrigated this incision with normal saline as well as the 2 small 5 mm incisions and then closed the 2 small mm 5 mm incisions with a single interrupted 4-0 undyed Monocryl subcuticular stitch, closed supraumbilical incision with 3 interrupted 4-0 undyed Monocryl subcuticular stitches. Area was cleaned and dried and Dermabond placed as well as Band-Aids. The patient tolerated the procedure. Sponge, instrument and needle count correct at the end of the case. Dr. Olivas assisted my portion of the case helping to identify anatomy, make incisions, and hold anatomy out of the way. Job ID: [id number] DocumentID: [id number] Dictated Date: 05/05/2019 01:02:46 Jockey Agent Date: 05/05/2019 03:45:38 Dictated By: DO NURA ESPINOZA
[2019-05-05] MEDS: CATHETER FLUSH 10 ML SYR IV SCH ×2 (06:15→14:00)
[2019-05-05] MEDS: IBUPROFEN 600 MG (MOTRIN) TAB PO PRN ×2 (06:23→14:34)
[2019-05-05 08:00] VITALS: BP 105/53
--- NOTE | 2019-05-05 09:16 | Anesthesia-General Post-Op ---
General Patient Condition Mental Status/LOC: Same as Preop Cardiovascular: Satisfactory Nausea/Vomiting: Absent Respiratory: Satisfactory Pain: Controlled Complications: Absent Post Op Complications Complications None Follow Up Care/Instructions Patient Instructions None needed. Anesthesia/Patient Condition Patient Condition Patient is doing well, no complaints, stable vital signs, no apparent adverse anesthesia problems. No complications reported per nursing. RADU GLASS CRNA May 05, 2019 09:16
--- NOTE | 2019-05-05 09:30 | Progress Note - Surgery ---
[facility] 05/05/19 0930: Subjective Date Seen by a Provider: May 05, 2019 Time Seen by a Provider: 08:30 Subjective/Events-last exam Patient is laying in bed comfortably. Pain is under control. Patient is urinating and reports that there may have been blood in urine but she attributes this to her AUB. she has not ambulated yet. She is tolerating regular diet with no nausea or vomiting. Has not had bowel movement yet. Review of Systems General: No Chills, No Night Sweats HEENT: No Visual Changes, No Dysphasia Pulmonary: No Dyspnea; Cough (feels she is draining ) Cardiovascular: No: Chest Pain, Palpitations Gastrointestinal: No: Nausea, Vomiting Genitourinary: No Dysuria, No Incontinence Musculoskeletal: No: back pain, leg pain Neurological: No: Weakness, Numbness, Change in speech, Confusion Objective Exam Vital Signs Date Time Temp Pulse Resp B/P (MAP) Pulse Ox O2 Delivery O2 Flow Rate FiO2 05/05/19 03:31 37.3 81 18 119/58 (78) 95 Room Air 05/04/19 23:33 37.4 77 20 115/59 (77) 95 Room Air 05/04/19 20:00 97 Room Air 05/04/19 20:00 37.2 87 18 134/60 (84) 93 Room Air 05/04/19 16:00 37.0 89 16 130/61 (84) 96 Nasal Cannula 2.00 05/04/19 13:40 Nasal Cannula 3 05/04/19 13:30 36.5 16 128/71 (90) 96 Room Air 05/04/19 13:30 Room Air 05/04/19 13:20 Simple Mask 5 05/04/19 13:20 16 123/73 (90) Simple Mask 5 05/04/19 13:10 16 17/74 (55) 96 Simple Mask 5 05/04/19 13:05 Simple Mask 8 05/04/19 13:00 20 117/68 (84) 97 Simple Mask 8 05/04/19 12:51 Simple Mask 10 05/04/19 12:50 20 118/69 (85) 98 Simple Mask 8 05/04/19 12:40 19 107/61 (76) 96 Simple Mask 10 05/04/19 12:37 Simple Mask 10 05/04/19 12:37 36.6 14 100/54 (69) 96 Simple Mask 10 05/04/19 12:00 I & O 05/05/19 07:00 Intake Total 2420 ml Output Total 1100 ml Balance 1320 ml Capillary Refill : Less Than 3 SecondsLess Than 3 Seconds General Appearance: No Apparent Distress, WD/WN HEENT: No Scleral Icterus (L), No Scleral Icterus (R) Neck: Non Tender, Supple Respiratory: Chest Non Tender, Lungs Clear, Normal Breath Sounds, No Accessory Muscle Use, No Respiratory Distress Cardiovascular: Regular Rate, Rhythm, No Murmur, Normal Peripheral Pulses (2/4 b/l radial) Peripheral Pulses: 2+ Radial Pulses (R), 2+ Radial Pulses (L) Gastrointestinal: normal bowel sounds, soft, tenderness (RLQ post op) Extremity: Non Tender, No Calf Tenderness, No Pedal Edema (neck, supraclavicular, popliteal) Neurologic/Psychiatric: Alert, Oriented x3, Normal Mood/Affect Skin: Normal Color, Warm/Dry Lymphatic: No Adenopathy (neck, auricular, supraclavicular, inguinal. popliteal - negative for all) Results Lab Microbiology 05/03/19 Genital Culture - Preliminary, Resulted 05/03/19 Wet Prep - Final, Resulted 05/03/19 Influenza Types A,B Antigen (KOFFI) - Final, Complete Assessment/Plan Assessment/Plan Assessment/Plan RLQ pain Elevated WBC s/p salpingectomy order CBC to follow WBC encourage ambulation and IS wait for bowels to wake up follow up with Dr. Penny regarding hysterectomy Clinical Quality Measures DVT/VTE Risk/Contraindication: Risk Factor Score Per Nursin RFS Level Per Nursing on Admit: 3=High Contraindications-Pharm: Other *list below* Contraindications-Mechi: Other *list below* Other: PT AMBULATING PASTOR FINNEY DO 05/05/19 1712: Subjective Time Seen by a Provider: 12:26 Subjective/Events-last exam Pt seen and examined, states she feels ok. Objective Exam Respiratory: Lungs Clear, No Accessory Muscle Use Gastrointestinal: soft, tenderness (RLQ post op, and at incisions) Assessment/Plan Assessment/Plan Assessment/Plan S/P Right Salpingectomy and Appendectomy D/C IV and D/C home, to follow up in a week. Supervisory-Addendum Brief Verification & Attestation Participated in pt care: history, MDM, physical Personally performed: exam, history, MDM Care discussed with: Medical Student Procedures: n/a Verification and Attestation of Medical Student E/M Service A medical student performed and documented this service in my presence. I reviewed and verified all information documented by the medical student and made modifications to such information, when appropriate. I personally performed the physical exam and medical decision making. Pastor Finney, May 05, 2019,17:12 [facility] May 05, 2019 09:30 PASTOR FINNEY DO May 05, 2019 17:12
[2019-05-05 12:00] VITALS: BP 107/55
[2019-05-05 16:00] VITALS: BP 116/57
[2019-05-05] MEDS ORDERED: AMOX-355 PO (17:14)
[2019-05-05] MEDS ORDERED: ACHD5005 PO (17:14)
--- NOTE | 2019-05-05 17:15 | Discharge Inst-Surgical ---
Discharge Inst-Surgical Depart Medication/Instructions New, Converted or Re-Newed RX: RX Given to Pt/Family Patient Instructions Follow up Appt: Make appointment for 1 week. [phone] Instructions: No lifting greater than 20 pounds. No strenuous activity. May shower in 24 hours, no tub bath or soaking. Use incentive spirometer at home as directed. No Smoking Skin/Wound Care: May remove bandages in am. You need to leave the Dermabond on incision it will fall off on it's own. Symptoms to Report: Appetite Changes, Extremity Discoloration, Numbness/Tingling, Swelling Increased, Bleeding Excessive, Eyesight Changes, Pain Increased, Urine Color Change, Constipation(Persistent), Fever over 101 degree F, Pain/Pressure in chest, Urinating Difficulty, Cough Up/Vomit Blood, Heart Beat Irreg/Pounding, Pain/Pressure in jaw, Cramps in feet or legs, Lightheadedness, Pain/Pressure in shoulder, Diarrhea(Persistent), Memory Changes Suddenly, Questions/Concerns, Weight gain consecutive days, Dizziness/Fainting, Nausea/Vomiting, Shortness of Breath, Weight gain over 2 pounds If questions or concerns contact your physician Or seek help at emergency department. Activity Activity as Tolerated: Yes Activity Instructions: Avoid Stress to Incision Driving Instructions: No Driving/Refer to Dr. Morales Discharge Diet: No Restrictions Diet After 24 Hours: Clear Liquid if Nauseous If Any Problems/Questions/Issu: Contact Your Physician, Go to Emergency Room Skin/Wound Care Infection Signs and Symptoms: Increased Redness, Foul Odor of Wound, Increased Drainage, Skin Itchy or Has a Rash, Increased Swelling, Temperature Above 101 F Bathing Instructions: Shower Stitches/Tati/Dermabond Dis: Dermabond Ice Pack: Ice On and Off Site RUBIO RODRIGUEZ DO May 05, 2019 17:15
[2019-05-05 18:33] VITALS: BP 116/57
== END 2019-05-05 18:34 | disposition home or self-care (01) ==
LOC: EDUNIT# 16:07 → ER 16:08 → 4TH 20:07
PROVIDERS: ADMIT Surgery; ATTEND Surgery
DX: N70.93 Salpingitis and oophoritis, unspecified (principal); N83.202 Unspecified ovarian cyst, left side; K38.9 Disease of appendix, unspecified; K66.0 Peritoneal adhesions (postprocedural) (postinfection); D72.829 Elevated white blood cell count, unspecified; Z79.899 Other long term (current) drug therapy; Z85.43 Personal history of malignant neoplasm of ovary
CPT/HCPCS: 36415; 51701; 74177; 80053; 81000; 84703; 85007; 85025; 85027; 87070; 87075; 87077; 87081; 87186; 87205; 87210; 87491; 87591; 87804; 88304; 88305; 96361; 96374; 96375

== ENCOUNTER 2019-05-12 11:58 | Outpatient (CLI) | payer OTHER ==
[~2019-05-12] VITALS: Ht 157 cm; Wt 108.3 kg
[~2019-05-12 11:58] MED LIST: ACHD5005 PO; AMOX-355 PO; IBUP-2473 PO; MULT-298 PO
[2019-05-17] MEDS ORDERED: ACET-93 PO (07:07)
[2019-05-17] MEDS ORDERED: CLOT15CR6 TP (07:07)
[2019-05-17] MEDS ORDERED: SIME80TA16 PO (07:07)
[2019-05-17] MEDS ORDERED: OXC5T PO (07:07)
[2019-05-17] MEDS ORDERED: ESTR1TAB27 PO (07:07)
[2019-05-17] MEDS ORDERED: IBUP-844 PO (07:07)
[2019-05-17] MEDS ORDERED: DOCU-143 PO (07:15)
== END 2019-05-12 12:09 ==
LOC: PREOP 11:58
PROVIDERS: ATTEND Obstetrics & Gynecology
DX: Z01.818 Encounter for other preprocedural examination (principal)

== ENCOUNTER → 2020-09-03 | Outpatient (CLI) | payer OTHER ==
[~2020-09-03] MED LIST changes: +ACET-93 PO; +CLOT15CR6 TP; +DOCU-143 PO; +ESTR1TAB27 PO; +IBUP-844 PO; +OXC5T PO; +SIME80TA16 PO
--- NOTE | 2020-09-03 18:42 | Diagnostic Imaging Report ---
PROCEDURE: MRI right joint lower extremity without contrast. TECHNIQUE: Multiplanar, multisequence non contrast-enhanced MRI of the right lower extremity was accomplished. INDICATION: Ankle pain. COMPARISONS: None available. FINDINGS: TENDONS: Achilles is intact. The peroneus longus and brevis tendons are normal. The posterior tibialis, flexor digitorum longus and flexor hallucis longus are intact. Anterior tibialis, extensor hallucis longus and extensor digitorum longus are normal. LIGAMENTS: Anterior and posterior distal tibiofibular ligaments are intact. The anterior talofibular, calcaneofibular and posterior talofibular ligaments are normal. Medial deltoid ligamentous complex remains intact. The spring ligament is also intact. BONES AND CARTILAGE: No osteochondral lesion of the talar dome. A very small amount of T2 hyperintense intramedullary edema is present in the plantar and medial surface of the calcaneus. No fracture line is seen. The articular cartilage of the tibiotalar and posterior subtalar joints are normal. SOFT TISSUES: No features of plantar fasciitis. There is some fatty atrophy of the abductor digiti minimi which can be seen with Covarrubias's neuropathy. No mass effect on the tarsal tunnel. No ankle joint effusion. There is a small amount of subcutaneous edema in the anterior aspect of the distal lower leg at the site of maximal pain. IMPRESSION: 1. Subtle bone marrow edema in the plantar and medial surface of the calcaneus does not have a associated fracture line and could represent site of stress reaction. 2. No acute tendon or ligament tear. 3. At the site of maximal pain in the medial aspect distal lower leg there is some subcutaneous edema. There is also some ill-definition and stranding in the fat that raises the possibility of an area of fat necrosis which is generally seen with a history of direct trauma to the region. Dictated by: Dictated on workstation # [id number]
== END ==
LOC: RAD 16:15
PROVIDERS: ATTEND Nurse Practitioner Family
DX: Z00.00 Encounter for general adult medical examination without abnormal findings (principal); Z04.2 Encounter for examination and observation following work accident; M25.571 Pain in right ankle and joints of right foot; M25.471 Effusion, right ankle
CPT/HCPCS: 73721